=== PATIENT | female | born 1935 | race Caucasian/White ===

== ENCOUNTER → 2016-11-11 | Outpatient (CLI) | payer MEDICARE ==
[~2016-11-11] MED LIST: ANTI-DIARRHEAL2 MG PO; ANTIVERT 12.512.5 MG PO; ANTIVERT 25MG25 MG PO; ARICEPT 5MG PO; ARICEPT10 MG PO; ARTIFICIAL TEAR15 M1; ARTIFICIAL TEAR30 M1 OP; ATIVAN 0.50.5 MG/TAB PO; BACTRIM DS 8001 TAB PO; BENADRYL ITCH R1 OIN TP; BISAC-EVAC10 MG RC; CALCIUM + D 6001 TA1 PO; CALCIUM 500 W/V1 TAB PO; CALCIUM 500500 M2 PO; CALCIUM600 M1 PO; CENTRUM SILVER1 CTB PO; CLOBETASOL0.05% TP; COLACE 100100 MG/CAP PO; COSOPT EYE DROPS OD; COSOPT EYE DROPS OU; COSOPT EYE OD; DESYREL 100MG100 MG PO; DESYREL 50MG50 MG PO; DESYREL DIVIDO150 M1 PO; DIFLUCAN150 MG PO; DILANTIN; DILANTIN 100MG100 MG PO; DOXYCYCLINE 10100 MG PO; DULCOLAX S10 MG/SUPP PO; DULCOLAX10 MG RC; ESTRACE 1MG1 MG/TAB PO; ESTRACE0.5 MG PO; FLUOXETINE; FORTICAL200 IU/ACT NS; GLUCOSAMINE CHO1 CAP PO; GLUCOSAMINE PO; GLUCOSAMINE/CHO1 CA4 PO; IMODIUM 2MG CAPS2 MG PO; INDERAL 20MG20 MG PO; K-DUR 2020 MEQ PO; KEPPRA 500MG500 MG PO; LEVAQUIN 2250 MG/TAB PO; LEVOTHYROXINE0.1 MG PO; LEVOXYL0.1 MG PO; LUMIGAN OD; MACRODANTIN50 MG/CA1 PO; MIACALCIN200 IU/ACT NS; MILK OF MA400 MG/5 M PO; MIRALAX PA17 GM/Dose PO; NABUMETONE750 MG PO; NATURAL E400 IU PO; NIFEREX-15150 MG/CAP PO; NORCO 325 MG-101 TAB PO; NORCO 325 MG-51 TAB PO; NYSTATIN CREAM15 GM TP; NYSTATIN100000 U/2 TP; OLEPTRO150 MG PO; OMNICEF 300MG300 MG PO; PERCOCET 325 MG1 TA2 PO; PREDNISONE 5MG5 MG PO; PREDNISONE10 MG; PREDNISONE10 MG PO; PREDNISONE20 MG PO; PREMARIN 0.60.625 MG PO; PRIL40 PO; PROLOPRIM100 MG PO; PROTONIX 40MG T40 MG PO; PROZAC 20MG20 MG PO; RELAFEN750 MG PO; SEE LIST; SENOKOT8.6 MG PO; SYNTHROID0.075 MG/T PO; SYNTHROID0.1 MG/TAB PO; SYSTANE LUBRICAN5 ML OP; THERAGRAN1 TA1 PO; TIMOLOL OPHTHALMIC OU; TRAMADOL/APAP 31 TAB PO; TRAZODONE150 MG PO; TRENTAL 400MG400 MG PO; TRIAMCINOLONE A15 GM TP; TYLENOL 325MG325 MG PO; ULTRACET TABL1 UDTAB PO; ULTRAM 50MG TAB50 MG PO; ULTRAM50 MG PO; VICKS VAPORUB 41 OIN TP; VITAMIN C500 MG PO; VITAMIN E 400 U4001 PO; VITAMINS; WELLBUTRIN SR150 M1 PO; XALATAN EYE DROPS OD; XALATAN EYE DROPS OU; XANAX .25M0.25 MG/TA PO; ZYLOPRIM 100MG100 MG PO; [UNRECOGNIZED DRUG - OTHER]
[2016-11-11 20:45] LABS: CALCIUM 10.1 mg/dL (8.4-10.2); CREATININE, serum 0.91 mg/dL (0.52-1.25); POTASSIUM 4.8 mmol/L (3.4-5.0)
== END ==
LOC: ZCOL.LAB 16:50
PROVIDERS: Internal Medicine
DX: M35.3 Polymyalgia rheumatica (principal)

== ENCOUNTER → 2016-11-17 | Outpatient (CLI) | payer MEDICARE ==
[2016-11-17 15:49] LABS: BASO % 0.3 % (0.0-2.0); EOS # 0.2 (0.0-0.7); EOS % 2.2 % (0-4.0); GRAN # 5.1 (1.4-6.5); GRAN % 66.2 % (42.2-75.2); HEMATOCRIT 37.5 % (37.0-47.0); HEMOGLOBIN 12.6 g/dl (12.5-16.0); LYMPH # 1.8 (1.2-3.4); LYMPH % 23.6 % (20.0-51.0); MEAN CELL VOLUME 92 fl (80.0-100.0); MEAN CORPUSCULAR HEMOGLOBIN 31 pg (27.0-31.0); MEAN CORPUSCULAR HGB CONC 34 g/dl (33.0-37.0); MEAN PLATELET VOLUME 10.9 fl (7.4-10.4); MONO # 0.6 (0.1-0.6); MONO % 7.4 % (1.7-9.3); PLATELET COUNT 221 K/mm3 (130-400); RED BLOOD COUNT 4.09 M/mm3 (4.10-5.30); REDCELL DISTRIBUTION WIDTH-CV 12.7 % (11.5-14.5); WHITE BLOOD COUNT 7.7 K/mm3 (4.8-10.8)
== END ==
LOC: ZCOL.LAB 15:16
PROVIDERS: Internal Medicine
DX: Z01.89 Encounter for other specified special examinations (principal); F02.80 Dementia in other diseases classified elsewhere, unspecified severity, without behavioral disturbance, psychotic disturbance, mood disturbance, and anxiety

== ENCOUNTER → 2017-02-07 | Outpatient (CLI) | payer MEDICARE, MEDICAID | LOC: ZCOL.LAB 13:28 | DX: M35.3 Polymyalgia rheumatica (principal) ==

== ENCOUNTER → 2017-05-12 | Outpatient (CLI) | payer MEDICARE, MEDICAID ==
[2017-05-12 16:20] LABS: CALCIUM 9.9 mg/dL (8.4-10.2); CREATININE, serum 0.94 mg/dL (0.52-1.25); POTASSIUM 4.7 mmol/L (3.4-5.0)
== END ==
LOC: ZCOL.LAB 16:09
PROVIDERS: Internal Medicine
DX: R79.89 Other specified abnormal findings of blood chemistry (principal)

== ENCOUNTER → 2017-05-16 | Outpatient (CLI) | payer MEDICARE, MEDICAID | LOC: WCC 09:14 | DX: L89.629 Pressure ulcer of left heel, unspecified stage (principal) | CPT/HCPCS: 13919; 17717; A6212; G0463 ==

== ENCOUNTER → 2017-05-23 | Outpatient (CLI) | payer MEDICARE, MEDICAID | LOC: WCC 09:32 | DX: L89.629 Pressure ulcer of left heel, unspecified stage (principal) | CPT/HCPCS: 13919; 17717; 27516; 50003; A6207; A6212; Q4172 ==

== ENCOUNTER → 2017-05-30 | Outpatient (CLI) | payer MEDICARE, MEDICAID | LOC: WCC 08:18 | DX: L89.629 Pressure ulcer of left heel, unspecified stage (principal) | CPT/HCPCS: 13973; 27510; A6197; A6199; G0463 ==

== ENCOUNTER → 2017-06-03 | Outpatient (CLI) | payer MEDICARE, MEDICAID | LOC: WCC 10:16 | DX: Z01.89 Encounter for other specified special examinations (principal) ==

== ENCOUNTER → 2017-06-10 | Outpatient (CLI) | payer MEDICARE, MEDICAID | LOC: WCC 10:57 | DX: Z01.89 Encounter for other specified special examinations (principal) ==

== ENCOUNTER → 2017-06-17 | Outpatient (CLI) | payer MEDICARE, MEDICAID | LOC: WCC 09:43 | DX: L89.629 Pressure ulcer of left heel, unspecified stage (principal) | CPT/HCPCS: 13919; 18867; 27510; A6197; A6209; G0463 ==

== ENCOUNTER → 2017-06-22 | Outpatient (CLI) | payer MEDICARE, MEDICAID | LOC: WCC 10:04 | DX: L89.629 Pressure ulcer of left heel, unspecified stage (principal) | CPT/HCPCS: 18867; 27510; A6197; A6209; G0463 ==

== ENCOUNTER → 2017-07-20 | Outpatient (CLI) | payer MEDICARE, MEDICAID | LOC: WCC 07-18 09:14 | DX: L97.429 Non-pressure chronic ulcer of left heel and midfoot with unspecified severity (principal) | CPT/HCPCS: 17716; A6212; G0463 ==

== ENCOUNTER → 2017-07-22 | Outpatient (CLI) | payer MEDICARE, MEDICAID | LOC: ZCOL.LAB 15:56 | DX: K27.9 Peptic ulcer, site unspecified, unspecified as acute or chronic, without hemorrhage or perforation (principal) ==

== ENCOUNTER → 2017-08-18 | Outpatient (CLI) | payer MEDICARE, MEDICAID | LOC: WCC 10:18 | DX: L89.629 Pressure ulcer of left heel, unspecified stage (principal) | CPT/HCPCS: 17717; A6212; G0463 ==

== ENCOUNTER → 2017-10-20 | Outpatient (CLI) | payer MEDICARE, MEDICAID ==
[2017-10-20 04:57] LABS: BASO # 0.1 (0.0-0.2); BASO % 0.6 % (0.0-2.0); EOS # 0.5 (0.0-0.7); EOS % 5.4 % (0-4.0); GRAN # 4.3 (1.4-6.5); GRAN % 51.7 % (42.2-75.2); LYMPH # 2.7 (1.2-3.4); LYMPH % 32.8 % (20.0-51.0); MEAN CELL VOLUME 95 fl (80.0-100.0); MEAN CORPUSCULAR HGB CONC 33 g/dl (33.0-37.0); MEAN PLATELET VOLUME 10.3 fl (7.4-10.4); MONO # 0.8 (0.1-0.6); MONO % 9.3 % (1.7-9.3); PLATELET COUNT 259 K/mm3 (130-400); RED BLOOD COUNT 3.38 M/mm3 (4.10-5.30); WHITE BLOOD COUNT 8.3 K/mm3 (4.8-10.8)
[2017-10-20 04:59] LABS: HEMOGLOBIN 10.4 g/dl (12.5-16.0); MEAN CORPUSCULAR HEMOGLOBIN 31 pg (27.0-31.0)
[2017-10-20 05:04] LABS: ADJUSTED CALCIUM 9.6 mg/dL (8.4-10.2); ALBUMIN 3.6 gm/dL (3.5-5.0); BILIRUBIN,TOTAL 0.2 mg/dL (0.0-1.0); CALCIUM 9.3 mg/dL (8.4-10.2); CREATININE, serum 0.89 mg/dL (0.52-1.25); POTASSIUM 4.4 mmol/L (3.4-5.0); TOTAL PROTEIN 6.4 gm/dL (6.4-8.2)
[2017-10-20 05:35] LABS: THYROID STIMULATING HORMONE 0.443 uIU/mL (0.465-4.680)
== END ==
LOC: ZCOL.LAB 04:44
PROVIDERS: Internal Medicine
DX: R79.89 Other specified abnormal findings of blood chemistry (principal)

== ENCOUNTER → 2017-11-10 | Outpatient (CLI) | payer MEDICARE, MEDICAID ==
[2017-11-10 07:02] LABS: CALCIUM 9.3 mg/dL (8.4-10.2); CREATININE, serum 0.95 mg/dL (0.52-1.25); POTASSIUM 4.5 mmol/L (3.4-5.0)
== END ==
LOC: COL.LAB 06:39
PROVIDERS: Internal Medicine
DX: R79.89 Other specified abnormal findings of blood chemistry (principal)

== ENCOUNTER → 2017-11-24 | Emergency (ER) | payer MEDICARE, MEDICAID ==
[~2017-11-24] VITALS: Ht 160 cm; Wt 72.7 kg
[~2017-11-24] MED LIST changes: +ACIDOPHILIS PO; -ARICEPT10 MG PO; +BENADRYL25 M2 PO; +CHLORASEPTIC 1180 M3; +MELATONIN5 M1 PO; +MOBIC15 MG PO; +MULTI VITAMINS1 TAB PO; +PEPCID AC20 MG PO; +PROZAC40 MG PO; +SYNTHROID0.05 MG/TA PO; -SYNTHROID0.075 MG/T PO; +ULTRAM ER100 MG PO; +ZOFRAN 4MG T4 MG/TAB PO
[2017-11-24 20:56] VITALS: TEMP 98.7
[2017-11-24 23:38] VITALS: BP 169/75; PULSE 62
== END ==
LOC: COL.ER 20:47
DX: S46.912A Strain of unspecified muscle, fascia and tendon at shoulder and upper arm level, left arm, initial encounter (principal); S80.02XA Contusion of left knee, initial encounter; S20.219A Contusion of unspecified front wall of thorax, initial encounter; I10 Essential (primary) hypertension; F03.90 Unspecified dementia, unspecified severity, without behavioral disturbance, psychotic disturbance, mood disturbance, and anxiety; W01.0XXA Fall on same level from slipping, tripping and stumbling without subsequent striking against object, initial encounter; Y92.009 Unspecified place in unspecified non-institutional (private) residence as the place of occurrence of the external cause

== ENCOUNTER → 2017-12-19 | Outpatient (CLI) | payer MEDICARE, MEDICAID ==
[2017-12-19 16:28] LABS: COLLECTION METHOD CATHETER
[2017-12-19 16:49] LABS: PH 7 (5-8); URINE APPEARANCE Cloudy; URINE BILIRUBIN Negative (NEGATIVE); URINE BLOOD 3+ (NEGATIVE); URINE COLOR Amber; URINE GLUCOSE Negative (NEGATIVE); URINE KETONE Negative (NEGATIVE); URINE LEUKOCYTE ESTERASE 3+ (NEGATIVE); URINE NITRATE Negative (NEGATIVE); URINE PROTEIN(semi-quant) 2+ (NEGATIVE); URINE UROBILINOGEN Negative (NEGATIVE)
[2017-12-19 17:07] LABS: SQUAMOUS EPITHELIAL 0-2 /hpf; URINE BACTERIA Many /hpf; URINE WBC >50 /hpf
[2017-12-19 17:08] LABS: AMORPHOUS CRYSTAL Present /uL; URINE RBC 20-50 /hpf
== END ==
LOC: ZCOL.LAB 16:22
PROVIDERS: Internal Medicine
DX: M54.5 Low back pain (principal)

== ENCOUNTER → 2018-02-15 | Outpatient (CLI) | payer MEDICARE, MEDICAID ==
[2018-02-15 10:14] LABS: THYROID STIMULATING HORMONE 1.06 uIU/mL (0.465-4.680)
== END ==
LOC: ZCOL.LAB 09:14
PROVIDERS: Internal Medicine
DX: M62.81 Muscle weakness (generalized) (principal)

== ENCOUNTER → 2018-03-13 | Outpatient (CLI) | payer MEDICARE, MEDICAID | LOC: COL.RAD 09:23 | DX: N32.9 Bladder disorder, unspecified (principal); N26.1 Atrophy of kidney (terminal) ==

== ENCOUNTER → 2018-06-08 | Outpatient (CLI) | payer MEDICARE, MEDICAID | LOC: ZCOL.LAB 15:37 | DX: M10.9 Gout, unspecified (principal); I10 Essential (primary) hypertension ==

== ENCOUNTER → 2018-11-09 | Outpatient (CLI) | payer MEDICARE, MEDICAID ==
[2018-11-09 12:44] LABS: BASO # 0.1 (0.0-0.2); BASO % 0.7 % (0.0-2.0); EOS # 0.6 (0.0-0.7); GRAN # 7.2 (1.4-6.5); GRAN % 63.3 % (42.2-75.2); HEMOGLOBIN 10.6 g/dl (12.5-16.0); LYMPH # 2.5 (1.2-3.4); LYMPH % 22.3 % (20.0-51.0); MEAN CELL VOLUME 93 fl (80.0-100.0); MEAN CORPUSCULAR HEMOGLOBIN 30 pg (27.0-31.0); MEAN CORPUSCULAR HGB CONC 32 g/dl (33.0-37.0); MEAN PLATELET VOLUME 10.2 fl (7.4-10.4); MONO % 8.3 % (1.7-9.3); PLATELET COUNT 304 K/mm3 (130-400); REDCELL DISTRIBUTION WIDTH-CV 12.6 % (11.5-14.5)
[2018-11-09 12:47] LABS: HEMATOCRIT 32.7 % (37.0-47.0)
[2018-11-09 13:11] LABS: ALBUMIN 3.6 gm/dL (3.5-5.0); BILIRUBIN,TOTAL 0.2 mg/dL (0.0-1.0); CALCIUM 9.7 mg/dL (8.4-10.2); CREATININE, serum 0.86 mg/dL (0.52-1.25); POTASSIUM 4.9 mmol/L (3.4-5.0); TOTAL PROTEIN 6.7 gm/dL (6.4-8.2)
[2018-11-09 13:37] LABS: THYROID STIMULATING HORMONE 1.13 uIU/mL (0.465-4.680)
== END ==
LOC: ZCOL.LAB 11:50
PROVIDERS: Internal Medicine
DX: I34.8 Other nonrheumatic mitral valve disorders (principal); I10 Essential (primary) hypertension; K27.9 Peptic ulcer, site unspecified, unspecified as acute or chronic, without hemorrhage or perforation; M35.3 Polymyalgia rheumatica; M10.9 Gout, unspecified

== ENCOUNTER → 2019-05-09 | Outpatient (CLI) | payer MEDICARE, MEDICAID ==
[2019-05-09 16:08] LABS: CALCIUM 9.7 mg/dL (8.4-10.2); CREATININE, serum 0.89 (0.52-1.25); POTASSIUM 4.8 mmol/L (3.4-5.0)
== END ==
LOC: ZCOL.LAB 15:51
PROVIDERS: Internal Medicine
DX: I10 Essential (primary) hypertension (principal)

== ENCOUNTER → 2019-10-02 | Outpatient (CLI) | payer MEDICARE, MEDICAID ==
[2019-10-02 01:29] LABS: COLLECTION METHOD CATHETER
[2019-10-02 02:06] LABS: AMORPHOUS CRYSTAL Present /uL; MUCOUS Present /lpf; PH 5 (5-8); SQUAMOUS EPITHELIAL 0-2 /hpf; URINE APPEARANCE Hazy; URINE BACTERIA Many /hpf; URINE BILIRUBIN Negative (NEGATIVE); URINE BLOOD 1+ (NEGATIVE); URINE COLOR Amber; URINE GLUCOSE Negative (NEGATIVE); URINE KETONE Negative (NEGATIVE); URINE LEUKOCYTE ESTERASE Trace (NEGATIVE); URINE NITRATE Negative (NEGATIVE); URINE PROTEIN(semi-quant) 1+ (NEGATIVE); URINE RBC 0-2 /hpf; URINE UROBILINOGEN Negative (NEGATIVE)
== END ==
LOC: ZCOL.LAB
PROVIDERS: Internal Medicine
DX: N39.0 Urinary tract infection, site not specified (principal)

== ENCOUNTER → 2019-10-18 | Outpatient (CLI) | payer MEDICARE, MEDICAID ==
[2019-10-18 13:00] LABS: COLLECTION METHOD CATHETER
[2019-10-18 13:19] LABS: BUDDING YEAST Present /hpf; PH 5 (5-8); SQUAMOUS EPITHELIAL 0-2 /hpf; URINE APPEARANCE Hazy; URINE BACTERIA Many /hpf; URINE BILIRUBIN Negative (NEGATIVE); URINE BLOOD 1+ (NEGATIVE); URINE COLOR Yellow; URINE GLUCOSE Negative (NEGATIVE); URINE KETONE Negative (NEGATIVE); URINE LEUKOCYTE ESTERASE 2+ (NEGATIVE); URINE NITRATE Positive (NEGATIVE); URINE PROTEIN(semi-quant) Negative (NEGATIVE); URINE UROBILINOGEN Negative (NEGATIVE); URINE WBC 20-50 /hpf
== END ==
LOC: ZCOL.LAB 12:00
PROVIDERS: Internal Medicine
DX: N39.0 Urinary tract infection, site not specified (principal)

== ENCOUNTER → 2020-01-03 | Outpatient (CLI) | payer MEDICARE, MEDICAID ==
[2020-01-03 18:49] LABS: BASO # 0.1 (0.0-0.2); BASO % 0.7 % (0.0-2.0); EOS # 0.6 (0.0-0.7); EOS % 5.9 % (0-4.0); GRAN # 5.9 (1.4-6.5); GRAN % 61.7 % (42.2-75.2); HEMOGLOBIN 10.3 g/dl (12.5-16.0); LYMPH # 2.3 (1.2-3.4); MEAN CELL VOLUME 96 fl (80.0-100.0); MEAN CORPUSCULAR HEMOGLOBIN 31 pg (27.0-31.0); MEAN CORPUSCULAR HGB CONC 32 g/dl (33.0-37.0); MEAN PLATELET VOLUME 11.5 fl (7.4-10.4); MONO # 0.7 (0.1-0.6); MONO % 7.4 % (1.7-9.3); PLATELET COUNT 232 K/mm3 (130-400); RED BLOOD COUNT 3.37 M/mm3 (4.10-5.30)
[2020-01-03 18:52] LABS: HEMATOCRIT 32.4 % (37.0-47.0)
[2020-01-03 18:59] LABS: CALCIUM 9.6 mg/dL (8.4-10.2); CREATININE, serum 1.41 (0.52-1.25); POTASSIUM 5.1 mmol/L (3.4-5.0); URIC ACID 4.9 mg/dL (2.5-6.2)
[2020-01-03 19:29] LABS: THYROID STIMULATING HORMONE 0.31 uIU/mL (0.465-4.680)
== END ==
LOC: ZCOL.LAB 17:23
PROVIDERS: Internal Medicine
DX: G30.9 Alzheimer's disease, unspecified (principal)

== ENCOUNTER 2020-03-12 15:25 | Emergency (ER) | payer MEDICARE, MEDICAID ==
[~2020-03-12] VITALS: Ht 162.6 cm; Wt 57.3 kg
[2020-03-12 16:31] LABS: ALANINE AMINOTRANSFERASE 15 U/L (4-34); ALBUMIN 4.3 gm/dL (3.5-5.0); ALKALINE PHOSPHATASE 83 U/L (50-136); ANION GAP 8 mmol/L (7-16); AST,SGOT 29 U/L (15-37); BILIRUBIN,TOTAL 0.4 mg/dL (0.0-1.0); BLOOD UREA NITROGEN 35 mg/dL (7-17); CALCIUM 9.6 mg/dL (8.4-10.2); CARBON DIOXIDE 28 mmol/L (22-30); CHLORIDE 102 mmol/L (98-107); GLUCOSE 98 mg/dL (74-106); SODIUM 137 mmol/L (137-145); TOTAL PROTEIN 7.5 gm/dL (6.4-8.2)
[2020-03-12 16:32] LABS: BASO # 0.1 (0.0-0.2); BASO % 0.4 % (0.0-2.0); EOS # 0.5 (0.0-0.7); EOS % 2.9 % (0-4.0); GRAN # 12.9 (1.4-6.5); GRAN % 82.2 % (42.2-75.2); LYMPH # 1.5 (1.2-3.4); LYMPH % 9.7 % (20.0-51.0); MEAN CELL VOLUME 96 fl (80.0-100.0); MEAN CORPUSCULAR HEMOGLOBIN 31 pg (27.0-31.0); MEAN CORPUSCULAR HGB CONC 32 g/dl (33.0-37.0); MEAN PLATELET VOLUME 10.7 fl (7.4-10.4); MONO # 0.7 (0.1-0.6); MONO % 4.5 % (1.7-9.3); PLATELET COUNT 235 K/mm3 (130-400); RED BLOOD COUNT 3.59 M/mm3 (4.10-5.30); REDCELL DISTRIBUTION WIDTH-CV 13.3 % (11.5-14.5)
[2020-03-12 16:36] LABS: HEMATOCRIT 34.5 % (37.0-47.0)
[2020-03-12 16:46] VITALS: BP 139/71; PULSE 80
[2020-03-12 16:46] LABS: C-REACTIVE PROTEIN < 0.5 mg/dL (0.0-0.9)
== END 2020-03-12 18:30 | disposition home or self-care (01) ==
LOC: COL.ER 15:25
PROVIDERS: Physician Assistant
DX: S31.41XA Laceration without foreign body of vagina and vulva, initial encounter (principal); Z90.710 Acquired absence of both cervix and uterus; W19.XXXA Unspecified fall, initial encounter

== ENCOUNTER → 2020-03-12 | Outpatient (CLI) | payer MEDICARE, MEDICAID ==
[~2020-03-12] MED LIST changes: +AMOXICILLIN 8751 TAB PO
[2020-03-12 15:35] LABS: CALCIUM 10.1 mg/dL (8.4-10.2); CREATININE, serum 1.07 (0.52-1.25); POTASSIUM 4.8 mmol/L (3.4-5.0)
== END ==
LOC: ZCOL.LAB 14:35
PROVIDERS: Internal Medicine
DX: I10 Essential (primary) hypertension (principal)

== ENCOUNTER → 2020-05-14 | Outpatient (CLI) | payer MEDICARE, MEDICAID | LOC: ZCOL.LAB 09:13 | DX: R94.6 Abnormal results of thyroid function studies (principal) ==

== ENCOUNTER → 2020-05-28 | Outpatient (CLI) | payer MEDICARE, MEDICAID | LOC: ZCOL.LAB 12:21 | DX: G30.9 Alzheimer's disease, unspecified (principal) ==

== ENCOUNTER → 2020-06-18 | Outpatient (CLI) | payer MEDICARE, MEDICAID ==
[2020-06-18 21:47] LABS: COLLECTION METHOD CATHETER
[2020-06-18 22:06] LABS: MUCOUS Present /lpf; PH 5 (5-8); SQUAMOUS EPITHELIAL None Seen /hpf; URINE APPEARANCE Hazy; URINE BACTERIA Occasional /hpf; URINE BILIRUBIN Negative (NEGATIVE); URINE BLOOD Negative (NEGATIVE); URINE COLOR Yellow; URINE GLUCOSE Negative (NEGATIVE); URINE KETONE Negative (NEGATIVE); URINE LEUKOCYTE ESTERASE Trace (NEGATIVE); URINE NITRATE Positive (NEGATIVE); URINE PROTEIN(semi-quant) Negative (NEGATIVE); URINE RBC 0-2 /hpf; URINE UROBILINOGEN Negative (NEGATIVE)
== END ==
LOC: ZCOL.LAB 20:07
PROVIDERS: Internal Medicine
DX: N39.0 Urinary tract infection, site not specified (principal)

== ENCOUNTER → 2020-07-29 | Outpatient (CLI) | payer MEDICARE, MEDICAID ==
[2020-07-29 16:50] LABS: BASO # 0.1 (0.0-0.2); BASO % 0.8 % (0.0-2.0); EOS # 0.5 (0.0-0.7); EOS % 4.7 % (0-4.0); GRAN # 6.8 (1.4-6.5); GRAN % 67.7 % (42.2-75.2); HEMOGLOBIN 10.8 g/dl (12.5-16.0); LYMPH % 20.2 % (20.0-51.0); MEAN CELL VOLUME 97 fl (80.0-100.0); MEAN CORPUSCULAR HEMOGLOBIN 31 pg (27.0-31.0); MEAN CORPUSCULAR HGB CONC 32 g/dl (33.0-37.0); MEAN PLATELET VOLUME 11.1 fl (7.4-10.4); MONO # 0.6 (0.1-0.6); MONO % 6.3 % (1.7-9.3); PLATELET COUNT 251 K/mm3 (130-400); RED BLOOD COUNT 3.48 M/mm3 (4.10-5.30)
[2020-07-29 16:55] LABS: HEMATOCRIT 33.7 % (37.0-47.0)
[2020-07-29 17:00] LABS: CALCIUM 9.3 mg/dL (8.4-10.2); CREATININE, serum 1.12 (0.52-1.25); POTASSIUM 4.9 mmol/L (3.4-5.0)
== END ==
LOC: ZCOL.LAB 16:33
PROVIDERS: Internal Medicine
DX: G30.9 Alzheimer's disease, unspecified (principal)

== ENCOUNTER → 2020-08-04 | Outpatient (CLI) | payer MEDICARE, MEDICAID | LOC: ZCOL.LAB 11:37 | DX: G30.9 Alzheimer's disease, unspecified (principal) ==

== ENCOUNTER → 2020-12-25 | Outpatient (CLI) | payer MEDICARE, MEDICAID ==
[2020-12-29 08:17] LABS: CREATININE, serum 1.48 (0.52-1.25); POTASSIUM 4.5 mmol/L (3.4-5.0)
[2020-12-29 08:28] LABS: ALBUMIN 4.1 gm/dL (3.5-5.0); BILIRUBIN,TOTAL 0.4 mg/dL (0.0-1.0); CALCIUM 9.6 mg/dL (8.4-10.2); THYROID STIMULATING HORMONE 0.839 uIU/mL (0.465-4.680)
[2020-12-29 08:45] LABS: GRAN % 63.9 % (42.2-75.2); HEMATOCRIT 33.7 % (37.0-47.0); HEMOGLOBIN 10.8 g/dl (12.5-16.0); MEAN CELL VOLUME 99 fl (80.0-100.0); MEAN CORPUSCULAR HEMOGLOBIN 32 pg (27.0-31.0); MEAN CORPUSCULAR HGB CONC 32 g/dl (33.0-37.0); MEAN PLATELET VOLUME 10.5 fl (7.4-10.4); PLATELET COUNT 253 K/mm3 (130-400); REDCELL DISTRIBUTION WIDTH-CV 13.2 % (11.5-14.5)
[2020-12-29 08:46] LABS: BASO # 0.1 (0.0-0.2); BASO % 1.2 % (0.0-2.0); EOS # 0.4 (0.0-0.7); EOS % 5.1 % (0-4.0); GRAN # 4.9 (1.4-6.5); LYMPH # 1.8 (1.2-3.4); MONO # 0.5 (0.1-0.6); MONO % 6.5 % (1.7-9.3)
== END ==
LOC: ZCOL.LAB 14:05
PROVIDERS: Internal Medicine
DX: E03.9 Hypothyroidism, unspecified (principal); I10 Essential (primary) hypertension

== ENCOUNTER → 2021-01-08 | Outpatient (CLI) | payer MEDICARE, MEDICAID | LOC: ZCOL.LAB 13:49 | DX: R33.9 Retention of urine, unspecified (principal) ==

== ENCOUNTER → 2021-03-09 | Outpatient (CLI) | payer MEDICARE, MEDICAID ==
[2021-03-09 13:31] LABS: BASO # 0.1 (0.0-0.2); BASO % 0.5 % (0.0-2.0); EOS # 0.1 (0.0-0.7); EOS % 0.6 % (0-4.0); GRAN % 73.5 % (42.2-75.2); HEMATOCRIT 33.3 % (37.0-47.0); HEMOGLOBIN 10.5 g/dl (12.5-16.0); LYMPH # 1.9 (1.2-3.4); LYMPH % 19.5 % (20.0-51.0); MEAN CELL VOLUME 99 fl (80.0-100.0); MEAN CORPUSCULAR HEMOGLOBIN 31 pg (27.0-31.0); MEAN CORPUSCULAR HGB CONC 32 g/dl (33.0-37.0); MEAN PLATELET VOLUME 10.7 fl (7.4-10.4); MONO # 0.5 (0.1-0.6); MONO % 5.6 % (1.7-9.3); PLATELET COUNT 289 K/mm3 (130-400); RED BLOOD COUNT 3.38 M/mm3 (4.10-5.30); REDCELL DISTRIBUTION WIDTH-CV 13.1 % (11.5-14.5)
[2021-03-09 13:41] LABS: BILIRUBIN,TOTAL 0.3 mg/dL (0.0-1.0); CALCIUM 9.9 mg/dL (8.4-10.2); CREATININE, serum 0.95 (0.52-1.25); POTASSIUM 4.6 mmol/L (3.4-5.0); TOTAL PROTEIN 7.2 gm/dL (6.4-8.2)
== END ==
LOC: ZCOL.LAB 11:22
PROVIDERS: Internal Medicine
DX: E03.9 Hypothyroidism, unspecified (principal)

== ENCOUNTER → 2021-05-06 | Outpatient (CLI) | payer MEDICARE, MEDICAID | LOC: ZCOL.LAB 14:57 | DX: M79.661 Pain in right lower leg (principal) ==

== ENCOUNTER → 2021-06-08 | Outpatient (CLI) | payer MEDICARE, MEDICAID ==
[2021-06-08 12:49] LABS: CALCIUM 9.3 mg/dL (8.4-10.2); CREATININE, serum 0.99 (0.52-1.25); POTASSIUM 4.4 mmol/L (3.4-5.0)
== END ==
LOC: ZCOL.LAB 12:14
PROVIDERS: Internal Medicine
DX: M10.9 Gout, unspecified (principal)

== ENCOUNTER 2022-04-18 10:26 | Emergency (ER) | payer MEDICARE, MEDICAID ==
[~2022-04-18] VITALS: Ht 157.5 cm; Wt 55.0 kg
[2022-04-18 11:37] LABS: BASO # 0.1 K/mm3 (0.0-0.2); BASO % 0.7 % (0.0-2.0); EOS # 0.6 K/mm3 (0.0-0.7); EOS % 5.9 % (0.0-4.0); GRAN % 65.5 % (42.2-75.2); HEMOGLOBIN 10.4 g/dl (12.5-16.0); LYMPH # 2.1 K/mm3 (1.2-3.4); LYMPH % 19.2 % (20.0-51.0); MEAN CELL VOLUME 101 fl (80.0-100.0); MEAN CORPUSCULAR HEMOGLOBIN 32 pg (27-31); MEAN CORPUSCULAR HGB CONC 32 g/dl (33.0-37.0); MEAN PLATELET VOLUME 10.3 fl (7.4-10.4); MONO # 0.9 K/mm3 (0.1-0.6); MONO % 8.4 % (1.7-9.3); PLATELET COUNT 231 K/mm3 (130-400); RED BLOOD COUNT 3.27 M/mm3 (4.10-5.30); REDCELL DISTRIBUTION WIDTH-CV 12.9 % (11.5-14.5)
[2022-04-18 12:18] LABS: ALBUMIN 3.4 gm/dL (3.4-4.8); BILIRUBIN,TOTAL 0.3 mg/dL (0.2-1.2); C-REACTIVE PROTEIN 0.45 mg/dL (0.00-0.50); CALCIUM 9.2 mg/dL (8.4-10.2); CREATININE, serum 1.19 mg/dL (0.57-1.11); POTASSIUM 3.8 mmol/L (3.5-4.5); TOTAL PROTEIN 6.8 gm/dL (6.2-8.1)
[2022-04-18] MEDS ORDERED: DOXYCYCLINE 10100 MG PO (13:38)
[2022-04-18 14:08] VITALS: BP 161/63; PULSE 63; TEMP 98.4
== END 2022-04-18 14:16 | disposition home or self-care (01) ==
LOC: COL.ER 10:26
PROVIDERS: Nurse Practitioner
DX: L03.116 Cellulitis of left lower limb (principal)
CPT/HCPCS: J0696; J3010; J7030

== ENCOUNTER → 2022-06-09 | Outpatient (CLI) | payer MEDICARE, MEDICAID ==
[2022-06-09 13:22] LABS: COLLECTION METHOD CATHETER
[2022-06-09 13:54] LABS: MUCOUS Present (NOT PRESENT); SQUAMOUS EPITHELIAL None Seen /hpf (0-10); URINE BACTERIA Rare /hpf (NONE SEEN); URINE RBC 0-2 /hpf (0-2); URINE WBC 20-50 /hpf (0-2)
[2022-06-09 13:56] LABS: PH 5 (5-8); URINE APPEARANCE Hazy (CLEAR/HAZY); URINE COLOR Yellow (YELLOW); URINE GLUCOSE Negative (NEGATIVE); URINE KETONE Negative (NEGATIVE); URINE PROTEIN(semi-quant) Negative (NEGATIVE)
[2022-06-09 13:57] LABS: URINE UROBILINOGEN Negative (NEGATIVE)
[2022-06-09 13:58] LABS: URINE BLOOD Negative (NEGATIVE); URINE NITRATE Positive (NEGATIVE)
== END ==
LOC: ZCOL.LAB 13:15
PROVIDERS: Internal Medicine
DX: R33.9 Retention of urine, unspecified (principal)

== ENCOUNTER → 2022-07-12 | Outpatient (CLI) | payer MEDICARE, MEDICAID ==
[2022-07-12 13:25] LABS: THYROID STIMULATING HORMONE 0.618 uIU/mL (0.350-4.940); URIC ACID 4.5 mg/dL (2.6-6.0)
== END ==
LOC: ZCOL.LAB 11:59
PROVIDERS: Internal Medicine
DX: M15.9 Polyosteoarthritis, unspecified (principal); M10.9 Gout, unspecified; R56.9 Unspecified convulsions; E03.9 Hypothyroidism, unspecified

== ENCOUNTER → 2022-11-07 | Outpatient (REF) | payer MEDICARE, MEDICAID ==
[~2022-11-07] MED LIST changes: +ACIDOPHILIS; +BENADRYL EXTRA STR2% TP; +BIOFREEZE 0.2%-1 GE1 TOP; +CRANBERRY450 MG; +PRINZIDE 25 MG-1 TAB PO
== END ==
LOC: ZCOL.LAB 08:00
DX: L89.610 Pressure ulcer of right heel, unstageable (principal)